=== PATIENT | male | born 1940 | race Hispanic/Latino ===

== ENCOUNTER 2017-01-28 09:09 | Emergency (ER) | payer MEDICARE, MEDICAID ==
[~2017-01-28] VITALS: Ht 165.1 cm; Wt 81.8 kg
[~2017-01-28 09:09] MED LIST: ASPI-973 PO; GLIP10TA10 PO; INSU100I25 SQ; LISI-567 PO; NAPR550T44 PO; NPH,100V10 SUBQ; TAMS0.4C98 PO
[2017-01-28 09:20] VITALS: BP 129/90; PULSE 69; RESP 22; O2SAT 98
--- NOTE | 2017-01-28 09:30 | ED.REPORT ---
HPI-Dyspnea / Wheezing Date of Service Jan 28, 2017 ED Provider: Dr. Mitchell Pt is a 76 y/o male w/ a hx of HTN, CKD, DM, presenting to the ED c/o cough onset last night. He states the cough caused him trouble sleeping last night and has been persistent throughout the day. He c/o associated mild TREJO, sore throat. Pt denies CP, SOB when not coughing, fever, chills, nausea, vomiting. He is a former smoker and quit many years ago. There have been no sick contacts. He has no chronic pulmonary disease. Nursing Notes Stated Complaint: COUGH Chief Complaint: General Complaint Nursing Notes Reviewed: Yes Allergies: Coded Allergies: No Known Allergies (Unverified , 04/30/16) Scheduled Aspirin (Aspirin) 81 Mg Tablet 81 MG PO DAILY Glipizide (Glipizide) 10 Mg Tablet 10 MG PO DAILY Insulin Detemir (Levemir Flextouch) 100 Unit/1 Ml Insuln.pen 25 UNIT SQ DAILY Lisinopril (Lisinopril) 20 Mg Tablet 20 MG PO DAILY NPH, Human Insulin Isophane (Novolin-N U100 Insulin Vial) 100 Unit/1 Ml Vial 20 UNITS SUBQ DAILYWL Tamsulosin (Flomax) 0.4 Mg Capsule 0.4 MG PO DAILY Scheduled PRN Benzonatate (Tessalon Perle) 100 Mg Capsule 100 MG PO TID PRN PRN For Cough Naproxen (Naproxen) 250 Mg Tablet 250 MG PO BID PRN PRN For Pain Naproxen Sodium (Naproxen Sodium) 550 Mg Tab 550 MG PO BID PRN PRN For Pain General Time Seen by MD: 09:30 Chief Complaint Cough Hx Obtained From: Patient Arrived By: Walk-in Sudden in Onset?: No Onset Occurred: 9 - 12 hours ago Symptom Duration: Since onset Severity: Current: No pain currently Severity: Maximum: No pain Similar Sx Previous: No Past Medical History Past Medical History chronic kidney disease Reports: Diabetes mellitus, Hypertension, Denies: Asthma, COPD, Coronary artery disease Past Surgical History none reported Smoking History Former Smoker Social History Alcohol Use: Denies alcohol use Drug Use: Denies drug use Ambulatory Status Independent Review of Systems Constitutional: Denies: Chills, Fever Ears / Nose / Throat: Reports: Sore throat Respiratory: Reports: Non-productive cough, Denies: Pleuritic pain, Shortness of breath Cardiovascular: Denies: Chest pain Complete sys rev & neg: except as marked. GI: Denies: Abdominal pain, Nausea, Vomiting Neurologic: Reports: Headache, Denies: Focal weakness, Numbness Physical Exam Initial Vital Signs Vital Signs (First) Date Time Temp Pulse Resp B/P Pulse Ox O2 Delivery O2 Flow Rate FiO2 01/28/17 09:20 36.6 69 22 129/90 98 Room Air Initial VS: Reviewed, Vital signs normal Head / Eyes: Atraumatic, Normocephalic, PERRL Abdomen / GI: Soft, No distention Extremities: Vascular intact, Neuro intact, No swelling, No tenderness Skin: Warm, Dry, No cyanosis Neurologic: Alert, Oriented, Nonfocal Psychiatric: Mood/affect normal, Behavior normal, Normal thought content General/Constitutional: Awake, Alert, No acute distress, Well appearing, Cooperative, Not toxic appearing Neck: Atraumatic, Supple, No meningismus, Full range of motion, No adenopathy Abnormally swollen parotid glands - he states this is chronic Respiratory / Chest: Atraumatic, Breath sounds NL, Breath sounds = bilat, No respiratory distress, No rales, No rhonchi, No wheezing, No retractions, No stridor, No chest tenderness, No chest wall deformity, No crepitus Cardiovascular: Heart rate NL, Regular rhythm, Heart sounds NL, No gallop, No murmurs, No rubs, Cap refill not delayed, Peripheral circulation NL ENT: Atraumatic, Airway patent, Mucous membranes moist Mild pharyngeal erythema No exudates Uvula midline Re-Eval/Medical Decision Re-Evaluation/Progress : Time of Eval: 10:41 Re-Evaluation/Progress Note: Discussed plan for discharge and outpatient treatment during initial interview. Counseled Regarding: Diagnosis, Need for follow-up, When/why to return to ED Discharge & Departure Impression: Primary Impression: Cough Disposition: Home Discharge Condition All VS Reviewed: Yes Condition: Stable Patient Instructions: Upper Respiratory Infection (ED) Additional Instructions: No pneumonia is detected at this time. I believe that your symptoms are caused by a viral upper respiratory tract infection. I recommended naproxen 250 mg twice daily and copious oral hydration. Also, you can take Tessalon Perles as needed for cough. Follow up next week if symptoms are not improving, sooner if worse. Google Translate No se detecta ninguna neumona en bethel momento. Creo que addy sntomas son causados por tyesha infeccin viral del tracto respiratorio superior. Se recomienda naproxeno 250 mg dos veces al da y abundante hidratacin oral. Adem s, puede jacquelin Tessalon Perles segn sea necesario para la tos. Seguir la semana que viene si los sntomas no estn mejorando, antes si es peor. Referrals: Kaleb Butts MD (PCP) Scribe Attestation Portions of this note were transcribed by Ovi Delgado. I, Dr. Mitchell, personally performed the history, physical exam and medical decision-making; I reviewed and confirmed the accuracy of the information in the transcribed note. Signed by Carole Van, 01/28/17 - 1100 copies to: Kaleb Butts MD, Kirk H MD Jan 28, 2017 09:30 OVI DELGADO Jan 28, 2017 09:33
[2017-01-28] MEDS ORDERED: BENZ-12 PO (10:44)
[2017-01-28] MEDS ORDERED: NAPR250T PO (10:44)
[2017-01-28 10:50] VITALS: BP 129/90; PULSE 69; RESP 22; O2SAT 98
== END 2017-01-28 10:58 | disposition home or self-care (01) ==
LOC: SED 09:09
DX: R05 Cough (principal); E11.22 Type 2 diabetes mellitus with diabetic chronic kidney disease; N18.9 Chronic kidney disease, unspecified; I10 Essential (primary) hypertension; Z79.82 Long term (current) use of aspirin; Z87.891 Personal history of nicotine dependence